=== PATIENT | female | born 1945 | race Caucasian/White ===

== ENCOUNTER 2017-05-26 16:22 | Emergency (ER) | payer MEDICARE ==
[2017-05-26] MEDS ORDERED: KETOROLAC 30 MG/ML VIAL IM ONE (17:05)
[2017-05-26] MEDS ORDERED: PROMETHAZINE HCL 25 MG/ML VIAL IM ONE (17:05)
[2017-05-26] MEDS ORDERED: HYDROMORPHONE HCL 1MG/ML **SYRINGE IM ONE ×2 (17:07→17:50)
--- NOTE | 2017-05-26 17:27 | Emergency Department Record ---
History of Present Illness - General Chief Complaint: Headache Migraine Stated Complaint: MIGRAINE Time Seen by Provider: 05/26/17 16:49 Source: Patient Mode of Arrival: Ambulatory Limitations: No limitations - History of Present Illness Initial Comments: pt is having her typical migraine on the right side of her head. it is the same as the headaches shes had for 34 years. she has nausea but no vomiting. 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 - Related Data Home Medications Medication Instructions Recorded Confirmed Last Taken Cholecalciferol (Vitamin D3) 50,000 unit PO WEEKLY 05/26/17 05/26/17 05/26/17 [Vitamin D] Ezetimibe [Zetia] 10 mg PO DAILY 05/26/17 05/26/17 05/25/17 Fentanyl 75 mcg TD Q72H 05/26/17 05/26/17 05/26/17 Rosuvastatin Calcium [Crestor] 20 mg PO DAILY 05/26/17 05/26/17 05/25/17 Sertraline HCl [Zoloft] 100 mg PO DAILY 05/26/17 05/26/17 05/26/17 Triamcinolone Acetonide 1 apply TP ASDIR 05/26/17 05/26/17 05/26/17 Allergies Allergy/AdvReac Type Severity Reaction Status Date / Time cephalexin monohydrate Allergy HIVES Verified 07/01/15 10:58 [From Keflex] Iodinated Contrast- Oral and Allergy unknown Verified 07/01/15 10:58 IV Dye Penicillins Allergy HIVES Verified 07/01/15 10:58 diphenhydramine HCl AdvReac RAPID Verified 07/01/15 10:58 [From Benadryl] HEART RATE metoclopramide HCl AdvReac RAPID Verified 07/01/15 10:58 [From Reglan] HEART RATE ondansetron HCl AdvReac RAPID Verified 07/01/15 10:58 [From Zofran (as HEART RATE hydrochloride)] Travel Screening - Travel/Exposure Within Last 30 Days Have you traveled within the last 30 days?: No - Travel/Exposure Within Last Year Have you traveled outside the [place] in the last year?: No - Additonal Travel Details Have you been exposed to anyone with a communicable illness?: No Review of Systems Reviewed: No additional complaints except as noted below Constitutional: Reports: As per HPI. Denies: Chills, Fever, Malaise, Night sweats, Weakness, Weight change Eyes: Reports: As per HPI. Denies: Eye discharge, Eye pain, Photophobia, Vision change ENT: Reports: As per HPI. Denies: Congestion, Dental pain, Ear pain, Epistaxis , Hearing loss, Throat pain Respiratory: Reports: As per HPI. Denies: Cough, Dyspnea, Hemoptysis, Stridor, Wheezes Cardiovascular: Reports: As per HPI. Denies: Arrhythmia, Chest pain, Dyspnea on exertion, Edema, Murmurs, Orthopnea, Palpitations, Paroxysmal nocturnal dyspnea, Rheumatic Fever, Syncope Endocrine: Reports: As per HPI. Denies: Fatigue, Heat or cold intolerance, Polydipsia, Polyuria Gastrointestinal: Reports: As per HPI. Denies: Abdominal pain, Constipation, Diarrhea, Hematemesis, Hematochezia, Melena, Nausea, Vomiting Genitourinary: Reports: As per HPI. Denies: Abnormal menses, Discharge, Dyspareunia, Dysuria, Frequency, Hematuria, Incontinence, Retention, Urgency Musculoskeletal: Reports: As per HPI. Denies: Arthralgia, Back pain, Gout, Joint swelling, Myalgia, Neck pain Skin: Reports: As per HPI. Denies: Bruising, Change in color, Change in hair/ nails, Lesions, Pruritus, Rash Neurological: Reports: As per HPI. Denies: Abnormal gait, Confusion, Headache, Numbness, Paresthesias, Seizure, Tingling, Tremors, Vertigo, Weakness Psychiatric: Reports: As per HPI. Denies: Anxiety, Auditory hallucinations, Depression, Homicidal thoughts, Suicidal thoughts, Visual hallucinations Hematological/Lymphatic: Reports: As per HPI. Denies: Anemia, Blood Clots, Easy bleeding, Easy bruising, Swollen glands Past Medical History - SOCIAL HISTORY Smoking Status: Never smoker Alcohol Use: None Drug Use: None - RESPIRATORY Hx Respiratory Disorders: No - CARDIOVASCULAR Hx Cardio Disorders: Yes Hx Hypertension: Yes Comment:: high cholesterol - NEURO Hx Neuro Disorders: Yes Hx of Migraines: Yes Hx Neuropathy: Yes (bilateral feet) Hx Seizures: Yes (last one 2011) - GI Hx GI Disorders: Yes Hx Abdominal Pain: Yes (epigastric pain right side radiating to back) Hx Diverticulitis: Yes Hx Hepatitis/Jaundice: Yes (Hep C (2000)) Hx Nausea/Vomiting: Yes Hx Pancreatitis: Yes Hx Ulcer: Yes Hx Wt Loss/Wt Gain: Yes (loss of 22lbs in3 months) Comment:: diarrhea - Hx Genitourinary Disorders: No - ENDOCRINE Hx Endocrine Disorders: Yes Hx Diabetes: No Hx Thyroid Disease: Yes (nodule on right lobe) - MUSCULOSKELETAL Hx Musculoskeletal Disorders: Yes - PSYCH Hx Psych Problems: Yes Hx Anxiety: Yes Hx Depression: Yes - HEMATOLOGY/ONCOLOGY Hx Hematology/Oncology Disorders: Yes Hx Cancer: Yes (oral cyst) Hx Blood Transfusions: Yes (1975 with hysterectomy) Hx Blood Transfusion Reaction: Yes (possible Hep. C transmission) Family Medical History Any Significant Family History?: No Hx Cancer: Father, Brother/Sister *Cancer Comment: lung (dad & brother), breast (2 sisters) Hx Heart Disease: Mother, Brother/Sister Physical Exam - General General Appearance: Alert, Oriented x3, Cooperative, No acute distress - Head Head exam: Normal inspection - Eye Eye exam: Normal appearance, PERRL, EOMI Pupils: Normal accommodation - ENT ENT exam: Normal exam, Mucous membranes moist, Normal external ear exam, Normal orophraynx Ear exam: Normal external inspection. negative: External canal tenderness Nasal Exam: Normal inspection. negative: Discharge, Sinus tenderness Mouth exam: Normal external inspection, Tongue normal Teeth exam: Normal inspection. negative: Dental caries Throat exam: Normal inspection. negative: Tonsillar erythema, Tonsillar exudate - Neck Neck exam: Normal inspection, Full ROM. negative: Tenderness - Respiratory Respiratory exam: Normal lung sounds bilaterally. negative: Respiratory distress - Cardiovascular Cardiovascular Exam: Regular rate, Normal rhythm, Normal heart sounds - GI/Abdominal GI/Abdominal exam: Soft, Normal bowel sounds. negative: Tenderness - Rectal Rectal exam: Deferred - exam: Deferred - Extremities Extremities exam: Normal inspection, Full ROM, Normal capillary refill. negative: Tenderness - Back Back exam: Reports: Normal inspection, Full ROM. Denies: Muscle spasm, Rash noted, Tenderness - Neurological Neurological exam: Alert, CN II-XII intact, Normal gait, Oriented X3 - Psychiatric Psychiatric exam: Normal affect, Normal mood - Skin Skin exam: Dry, Intact, Normal color, Warm Course Vital Signs 05/26/17 16:28 Temperature 98.1 F Pulse Rate 87 Respiratory 16 Rate Blood Pressure 139/79 Pulse Ox 98 - Reevaluation(s) Reevaluation #1: 05/26/17 17:27 pt feels better Disposition Disposition: Discharge Clinical Impression: Migraine Qualifiers: Migraine type: unspecified Status migrainosus presence: with status migrainosus Intractability: intractable Qualified Code(s): G43.911 - Migraine, unspecified, intractable, with status migrainosus Disposition: Home, Self-Care Condition: (1) Good Instructions: Migraine Headache (ED) Additional Instructions: follow up with family doctor. return sooner if worse Quality - Quality Measures Quality Measures: N/A - Blood Pressure Screening Does Patient Have Any of the Following: No Blood Pressure Classification: Pre-Hypertensive BP Reading Systolic Measurement: 139 Diastolic Measurement: 79 Screening for High Blood Pressure: < Pre-Hypertensive BP, F/U Documented > [ [id number]] Pre-Hypertensive Follow-up Interventions: Follow-up with rescreen every year.
== END 2017-05-26 18:45 | disposition home or self-care (01) ==
LOC: ER 16:22
DX: G43.911 Migraine, unspecified, intractable, with status migrainosus (principal); R11.0 Nausea; H53.149 Visual discomfort, unspecified
CPT/HCPCS: 99283 ×2; 96372; J1885; J1170; J2550